=== PATIENT | female | born 1945 | race Two or more races ===

== ENCOUNTER 2023-05-07 23:37 | Emergency (ER) | payer OTHER ==
[~2023-05-07] VITALS: Ht 162.6 cm; Wt 96.6 kg
[2023-05-07] MEDS ORDERED: COZAAR25 MG (23:55)
== END 2023-05-08 11:16 | disposition home or self-care (01) ==
LOC: ER 23:37
DX: M19.09 Primary osteoarthritis, other specified site (principal); N39.0 Urinary tract infection, site not specified; I10 Essential (primary) hypertension
CPT/HCPCS: 36415; 73100; 93971; 96365; 99284; J1885

== ENCOUNTER 2023-06-09 20:14 | Emergency (ER) | payer OTHER ==
[~2023-06-09] VITALS: Ht 162.6 cm; Wt 95.3 kg
[~2023-06-09 20:14] MED LIST: COZAAR25 MG
== END 2023-06-10 00:32 | disposition home or self-care (01) ==
LOC: ER 20:14
DX: M25.531 Pain in right wrist (principal)
CPT/HCPCS: 96372; 99284; J1100; J1885

== ENCOUNTER 2023-07-22 09:02 | Outpatient (CLI) | payer OTHER | END 2023-07-22 09:07 | disposition home or self-care (01) | LOC: RX STUDY 09:02 | PROVIDERS: ATTEND Colon & Rectal Surgery | DX: K57.32 Diverticulitis of large intestine without perforation or abscess without bleeding (principal) ==

== ENCOUNTER 2025-09-08 12:12 | Inpatient (IN) | payer OTHER ==
[~2025-09-08] VITALS: Ht 162.6 cm; Wt 90.7 kg
[~2025-09-08 12:12] MED LIST changes: +PAXLOVID 300-11 EAC1 PO; +TUSNEL LIQUID178 ML PO
--- NOTE | 2025-09-08 12:46 | NUR ---
SE RECIBE FEMINA ALERTA Y ORIENTADA X3 EN AMBULANCIA CUAL REFIERE PRSENTO UN MAREO SEGUIDO DE CA[place], SE GOLPEO CAMILO PARTE POSTERIOR, SE OBSERVA HEMATOMA CON LEVE SANGRADO AL MOMENTO. PARAMEDICO VERBALIZA PRESENTO P:31 LAT/MIN E HIPONTENSION AL MOMENTO LE ASMINISTRARON ATROPINA 1MG Y 0.9%NSS. SE STANLEY S/V, SE REALIZA EKG Y SE PRESENTA A , SE UBICA PTE Y SE CONECTA A MONITOR CARDIACO Y OXIMETRIA DE PULSO.
[2025-09-08] MEDS ORDERED: DEXAMETHASONE SODIUM PHOSPHATE 4 MG/ML VIAL ONE (13:20)
[2025-09-08] MEDS ORDERED: ACETAMINOPHEN 500 MG GEL..CAP PO ONE ×3 (13:20→20:33)
[2025-09-08] MEDS ORDERED: DEXAMETHASONE SODIUM PHOSPHATE 4 MG/ML VIAL IV ONE (13:30)
[2025-09-08] MEDS ORDERED: 0.9 % SODIUM CHLORIDE 1,000 ML IV ONE (13:30)
--- NOTE | 2025-09-08 13:49 | NUR ---
PACIENTE EVALUADA POR QUKELLY ORDENA TRATAMIENTO MEDICO, RN CESPEDES LE ORIENTA A PACIENTE SOBRE EL MISMO Y REFIERE ENTENDER, LE COLECTA MUESTRA, PACIENTE PREVIAMENTE CANALIZADO DE AMBULANCIA CON #18 EN IZQUIERDA, LE ADMINSITRA MEDICAMENTOS CHARLENE ORDEN. PENDIENTE ESTUDIOS DE CT.
[2025-09-08 13:56] LABS: BASO % 1.0 % (0.1-1.2); EOS # 0.20 (0.04-0.54); EOS % 4.0 % (0.7-7.0); LYMPH # 1.12 (1.18-3.74); LYMPH % 22.3 % (19.3-53.1); MEAN PLATELET VOLUME 9.80 fl (9.4-12.4); MONO # 0.42 (0.24-0.82); MONO % 8.3 % (4.7-12.5); NEUT # 3.21 (1.56-6.13); NEUT % 63.8 % (34.0-71.1); RED CELL DISTRIBUTION WIDTH 13.4 % (11.6-14.4)
[2025-09-08 14:23] LABS: INR 1.0
[2025-09-08 14:42] LABS: ALT/SGPT 15 U/L (12-78); AST/SGOT 14 U/L (15-37); BILIRUBIN TOTAL 0.70 mg/dL (0.3-1.2); BUN CREA RATIO 18 (7.0-25.0); CREATININE SERUM 0.78 mg/dL (0.55-1.02); GFR 71.61; GLOBULINA 4.2 G/DL (2.4-3.5); GLUCOSE FASTING 98 mg/dL (65-100); OSMOLALITY SERUM 285 MOSM/KG (275-295); PHOSPHOKINASE CREATININE 126 U/L (26-192)
[2025-09-08] MEDS ORDERED: FAMOTIDINE/PF 20 MG in 0.9 % SODIUM CHLORIDE 100 ML IV SCH (20:17)
[2025-09-08] MEDS ORDERED: ACETAMINOPHEN 500 MG GEL..CAP PO SCH (20:17)
[2025-09-08] MEDS ORDERED: ASPIRIN 81 MG TAB.CHEW PO SCH (20:17)
[2025-09-08] MEDS ORDERED: CLOPIDOGREL BISULFATE 75 MG TABLET PO SCH (20:17)
[2025-09-08] MEDS ORDERED: 0.9 % SODIUM CHLORIDE 1,000 ML IV SCH (20:30)
[2025-09-08] MEDS ORDERED: FAMOTIDINE/PF 20 MG/2 ML VIAL ONE (20:33)
[2025-09-09 07:16] LABS: INR 1.0
[2025-09-09 08:59] VITALS: BP 129/79; BP 139/69; O2SAT 96; O2SAT 98
[2025-09-09] MEDS ORDERED: LOSARTAN POTASSIUM 25 MG TABLET PO SCH (09:00)
[2025-09-09 09:43] VITALS: O2SAT 98
[2025-09-09 09:51] VITALS: O2SAT 90
[2025-09-09 19:06] VITALS: BP 121/73; O2SAT 100
[2025-09-10 03:29] VITALS: BP 113/62; O2SAT 97
[2025-09-10 09:11] VITALS: BP 136/79; O2SAT 97
[2025-09-10 10:52] VITALS: O2SAT 60
[2025-09-10 18:40] VITALS: BP 152/70; O2SAT 97
[2025-09-11 02:59] VITALS: BP 145/82; O2SAT 99
[2025-09-11 08:47] VITALS: BP 137/85; O2SAT 99
== END 2025-09-11 15:23 | disposition home or self-care (01) | DRG 84 ==
LOC: ER 12:12 → MEDI 20:15
PROVIDERS: ADMIT Internal Medicine; ATTEND Internal Medicine
PROC: BW28ZZZ Computerized Tomography (CT Scan) of Head (ICD-10-PCS; principal; 2025-09-08)
PROC: BR20ZZZ Computerized Tomography (CT Scan) of Cervical Spine (ICD-10-PCS; 2025-09-08)
PROC: B030ZZZ Magnetic Resonance Imaging (MRI) of Brain (ICD-10-PCS; 2025-09-08)
PROC: B345ZZZ Ultrasonography of Bilateral Common Carotid Arteries (ICD-10-PCS; 2025-09-08)
PROC: B246ZZZ Ultrasonography of Right and Left Heart (ICD-10-PCS; 2025-09-08)
PROC: 4A12X4Z Monitoring of Cardiac Electrical Activity, External Approach (ICD-10-PCS; 2025-09-09)
DX: S06.2X9A Diffuse traumatic brain injury with loss of consciousness of unspecified duration, initial encounter (principal); R55 Syncope and collapse; W13.3XXA Fall through floor, initial encounter; Y92.090 Kitchen in other non-institutional residence as the place of occurrence of the external cause; H53.8 Other visual disturbances; I10 Essential (primary) hypertension; M50.30 Other cervical disc degeneration, unspecified cervical region
CPT/HCPCS: 70551